=== PATIENT | female | born 1950 | race Caucasian/White ===

== ENCOUNTER 2023-12-26 05:36 | Day surgery (SDC) | payer MEDICARE ==
[2023-12-19 10:12] VITALS: BMI 31.4
[2023-12-26] MEDS ORDERED: Bupivacaine PF 0.5% 30 ML VIAL ONE (06:11)
[2023-12-26] MEDS ORDERED: Thrombin 5000 UNITS/5 ML VIAL ONE (06:11)
[2023-12-26] MEDS ORDERED: EPINEPHrine 1 MG/ML VIAL ONE (06:11)
[2023-12-26] MEDS ORDERED: PROPOFOL 20 ML ONE (06:19)
[2023-12-26] MEDS ORDERED: fentaNYL PF 100 MCG/2 ML SYRINGE ONE ×2 (06:19→08:55)
[2023-12-26] MEDS ORDERED: Rocuronium Bromide 10 MG/ML (10ML VIAL) ONE (06:26)
[2023-12-26] MEDS ORDERED: Lidocaine 1% PF 5 ML VIAL ONE (06:26)
[2023-12-26] MEDS ORDERED: CEFAZOLIN 2 GM VIAL ONE ×2 (06:40→10:42)
[2023-12-26] MEDS ORDERED: Scopolamine 1 mg/72 hour Patch ONE (06:40)
[2023-12-26] MEDS ORDERED: Sodium Chloride 0.9% 100 ML ONE ×2 (06:41→10:42)
[2023-12-26] MEDS ORDERED: Midazolam HCl 2 mg/2 ml Vial ONE (06:54)
[2023-12-26 07:04] LABS: Anion Gap 13 mmol/L (10-20); BUN (Urea Nitrogen) 17 mg/dL (9.8-20.1); Calc. Creatinine Clearance 93 mL/min (70-130); Calcium 8.9 mg/dL (7.8-10.44); Carbon Dioxide 26 mmol/L (23-31); Chloride 105 mmol/L (98-107); Estimated GFR 76; Glucose 96 mg/dL (83-110); Potassium 3.4 mmol/L (3.5-5.1); Sodium 141 mmol/L (136-145)
[2023-12-26] MEDS ORDERED: ePHEDrine Sulfate 50 MG/10 ML VIAL ONE (07:35)
[2023-12-26] MEDS ORDERED: PHENYLEPHRINE-NS 100 MCG/ML 10 ML SYRINGE ONE (07:44)
[2023-12-26] MEDS ORDERED: Ondansetron PF 4 MG/2 ML Vial ONE (08:04)
[2023-12-26] MEDS ORDERED: Dexamethasone 20 MG/5 ML VIAL ONE (08:04)
[2023-12-26] MEDS ORDERED: Ketorolac Tromethamine 30 MG (1 mL) VIAL ONE (08:04)
[2023-12-26] MEDS ORDERED: Lidocaine 2% PF 5 ML VIAL ONE (08:05)
[2023-12-26] MEDS ORDERED: SUGAMMADEX SODIUM 200 MG/2 ML VIAL ONE (08:10)
[2023-12-26] MEDS ORDERED: traMADol HCl 50 MG TAB ONE (10:14)
[2023-12-26] MEDS ORDERED: Cyclobenzaprine 10 MG TAB ONE (10:39)
== END 2023-12-26 11:35 | disposition home or self-care (01) ==
LOC: SDC 05:36
PROVIDERS: ATTEND Neurological Surgery
PROC: 01NB0ZZ Release Lumbar Nerve, Open Approach (ICD-10-PCS; principal; 2023-12-26)
DX: M48.061 Spinal stenosis, lumbar region without neurogenic claudication (principal); M54.16 Radiculopathy, lumbar region; Z88.5 Allergy status to narcotic agent
CPT/HCPCS: 63047; 80048; C1713; J0171; J0665; J1100; J1885; J2001; J2250; J2405; J2704; J3490

== ENCOUNTER 2024-04-23 05:39 | Day surgery (SDC) | payer MEDICARE ==
[2024-04-22 10:55] VITALS: BMI 31.9
[2024-04-23] MEDS ORDERED: Thrombin 5000 UNITS/5 ML VIAL ONE (06:10)
[2024-04-23] MEDS ORDERED: Bupivacaine PF 0.5% 30 ML VIAL ONE (06:10)
[2024-04-23] MEDS ORDERED: EPINEPHrine 1 MG/ML VIAL ONE (06:10)
[2024-04-23] MEDS ORDERED: fentaNYL PF 100 MCG/2 ML SYRINGE ONE ×2 (06:29→08:42)
[2024-04-23] MEDS ORDERED: CEFAZOLIN 2 GM VIAL ONE ×2 (06:29→09:48)
[2024-04-23] MEDS ORDERED: Lidocaine 1% MPF 2 ML VIAL ONE (06:29)
[2024-04-23] MEDS ORDERED: Rocuronium Bromide 10 MG/ML (10ML VIAL) ONE (06:30)
[2024-04-23] MEDS ORDERED: PROPOFOL 20 ML ONE (06:30)
[2024-04-23] MEDS ORDERED: Lidocaine 1% PF 5 ML VIAL ONE (06:30)
[2024-04-23] MEDS ORDERED: Scopolamine 1 mg/72 hour Patch ONE (06:34)
[2024-04-23] MEDS ORDERED: Famotidine/PF 20 mg/2ml Vial ONE (06:34)
[2024-04-23] MEDS ORDERED: Midazolam HCl 2 mg/2 ml Vial ONE (06:49)
[2024-04-23 06:50] LABS: Anion Gap 13 mmol/L (10-20); BUN (Urea Nitrogen) 17 mg/dL (9.8-20.1); Calc. Creatinine Clearance 78 mL/min (70-130); Calcium 9.1 mg/dL (7.8-10.44); Carbon Dioxide 25 mmol/L (23-31); Chloride 106 mmol/L (98-107); Estimated GFR 61; Glucose 101 mg/dL (83-110); Potassium 4.1 mmol/L (3.5-5.1); Sodium 140 mmol/L (136-145)
[2024-04-23] MEDS ORDERED: Sterile Water 10 ML ONE (07:08)
[2024-04-23] MEDS ORDERED: PHENYLEPHRINE-NS 100 MCG/ML 10 ML SYRINGE ONE (07:42)
[2024-04-23] MEDS ORDERED: Dexamethasone 20 MG/5 ML VIAL ONE (07:48)
[2024-04-23] MEDS ORDERED: Ondansetron PF 4 MG/2 ML Vial ONE (07:48)
[2024-04-23] MEDS ORDERED: Ketorolac Tromethamine 30 MG (1 mL) VIAL ONE (07:48)
[2024-04-23] MEDS ORDERED: Ondansetron HCl/PF 4 MG/2 ML Vial IVP PRN (08:08)
[2024-04-23] MEDS ORDERED: Promethazine HCl 25 MG/ML VIAL IM PRN (08:08)
[2024-04-23] MEDS ORDERED: SUGAMMADEX SODIUM 200 MG/2 ML VIAL ONE (08:13)
[2024-04-23] MEDS ORDERED: HYDROmorphone 0.5 MG/0.5 ML SYRINGE ONE (08:42)
[2024-04-23] MEDS ORDERED: Sodium Chloride 0.9% 100 ML ONE (09:49)
== END 2024-04-23 11:16 | disposition home or self-care (01) ==
LOC: SDC 05:39
PROVIDERS: ATTEND Neurological Surgery
PROC: 01NB0ZZ Release Lumbar Nerve, Open Approach (ICD-10-PCS; principal; 2024-04-23)
DX: M48.062 Spinal stenosis, lumbar region with neurogenic claudication (principal); M54.16 Radiculopathy, lumbar region; I10 Essential (primary) hypertension; K21.9 Gastro-esophageal reflux disease without esophagitis; E78.5 Hyperlipidemia, unspecified; Z79.899 Other long term (current) drug therapy
CPT/HCPCS: 63047; 80048; J0171; J0665; J1100; J1885; J2250; J2405; J2704; J3490